=== PATIENT | male | born 1980 | race Caucasian/White ===

== ENCOUNTER 2020-09-06 02:24 | Emergency (ER) | payer OTHER | END 2020-09-06 03:27 | disposition home or self-care (01) | LOC: FER 02:24 | DX: M79.671 Pain in right foot (principal); G89.29 Other chronic pain; I10 Essential (primary) hypertension; F17.290 Nicotine dependence, other tobacco product, uncomplicated; Z86.14 Personal history of Methicillin resistant Staphylococcus aureus infection | CPT/HCPCS: 99283 ==